=== PATIENT | male | born 1995 | race Caucasian/White ===

== ENCOUNTER 2019-06-17 02:55 | Emergency (ER) | payer SELFPAY ==
[~2019-06-17] VITALS: Ht 182.9 cm; Wt 77.0 kg
[2019-06-17 11:30] VITALS: BP 136/88
== END 2019-06-17 11:35 | disposition home or self-care (01) ==
LOC: ER 02:55
DX: T65.893A Toxic effect of other specified substances, assault, initial encounter (principal); H10.213 Acute toxic conjunctivitis, bilateral; Y93.89 Activity, other specified; Y92.410 Unspecified street and highway as the place of occurrence of the external cause; Z59.0 Homelessness; R03.0 Elevated blood-pressure reading, without diagnosis of hypertension
CPT/HCPCS: 99285